=== PATIENT | female | born 1950 | race Caucasian/White ===

== ENCOUNTER 2022-03-27 05:38 | Day surgery (SDC) | payer MEDICARE ==
[2022-03-25 10:55] VITALS: BMI 29.2
[2022-03-27] MEDS ORDERED: EPINEPHrine 1 MG/ML AMP ONE (06:19)
[2022-03-27] MEDS ORDERED: Bupivacaine PF 0.5% 30 ML VIAL ONE (06:20)
[2022-03-27] MEDS ORDERED: Lidocaine 1% MPF 2 ML VIAL ONE (06:23)
[2022-03-27] MEDS ORDERED: Clindamycin/D5W 600 mg/50 ml Premix Bag ONE (06:44)
[2022-03-27] MEDS ORDERED: Ondansetron PF 4 MG/2 ML Vial ONE (06:57)
[2022-03-27] MEDS ORDERED: Fentanyl 100 MCG/2 ML VIAL ONE (06:57)
[2022-03-27] MEDS ORDERED: Dexamethasone 4 mg/ml Vial ONE (06:57)
[2022-03-27] MEDS ORDERED: PROPOFOL 20 ML ONE (06:57)
[2022-03-27] MEDS ORDERED: Lidocaine 1% (PF) 30 ML VIAL ONE (06:58)
== END 2022-03-27 08:55 | disposition home or self-care (01) ==
LOC: CSHSDC 05:38
PROVIDERS: ATTEND Surgery
DX: C50.411 Malignant neoplasm of upper-outer quadrant of right female breast (principal); I10 Essential (primary) hypertension; Z17.0 Estrogen receptor positive status [ER+]; Z88.0 Allergy status to penicillin; Z90.49 Acquired absence of other specified parts of digestive tract; Z98.890 Other specified postprocedural states; Z79.899 Other long term (current) drug therapy
CPT/HCPCS: 36561; 71045; 80053; 82248; 83615; 84100; 84550; C1788; J0171; J1100; J1642; J2001; J2405; J2704; J3010; J3490; S0020

== ENCOUNTER 2022-06-30 06:43 | Day surgery (SDC) | payer MEDICARE ==
[2022-06-26 09:14] VITALS: BMI 25.4
[2022-06-30] MEDS ORDERED: Isosulfan Blue 50 MG/5 ML VIAL ONE (12:46)
[2022-06-30] MEDS ORDERED: Bupivacaine HCl 0.5%/Epinephrine 1:200,000/PF 30 ml Vial ONE (12:46)
[2022-06-30] MEDS ORDERED: Acetaminophen 325 MG TAB PO PRN (14:59)
[2022-06-30] MEDS ORDERED: HYDROcodone/Acetaminophen 5/325 mg Tablet PO PRN ×2 (14:59)
[2022-06-30] MEDS ORDERED: Morphine 2 MG/ML VIAL SLOW IVP PRN (15:10)
== END 2022-06-30 16:24 | disposition home or self-care (01) ==
LOC: CSHNM 06:43
PROVIDERS: ATTEND Surgery
PROC: 0HBT0ZZ Excision of Right Breast, Open Approach (ICD-10-PCS; principal; 2022-06-30)
PROC: 07B50ZZ Excision of Right Axillary Lymphatic, Open Approach (ICD-10-PCS; 2022-06-30)
PROC: C71LYZZ Planar Nuclear Medicine Imaging of Upper Chest Lymphatics using Other Radionuclide (ICD-10-PCS; 2022-06-30)
DX: C50.411 Malignant neoplasm of upper-outer quadrant of right female breast (principal); C77.3 Secondary and unspecified malignant neoplasm of axilla and upper limb lymph nodes; Z17.0 Estrogen receptor positive status [ER+]; F41.9 Anxiety disorder, unspecified; F32.A Depression, unspecified; Z79.899 Other long term (current) drug therapy; Z88.0 Allergy status to penicillin; Z88.1 Allergy status to other antibiotic agents
CPT/HCPCS: 19281; 19301; 38525; 38900; 76098; 78195; A9541; C1713 ×2; Q9968; 88307; 88331; 88342

== ENCOUNTER 2022-12-05 09:12 | Outpatient (CLI) | payer MEDICARE ==
[2022-12-05] MEDS ORDERED: Iopamidol 370 76% 100 ML VIAL ONE (09:29)
== END 2022-12-05 09:13 | disposition home or self-care (01) ==
LOC: CSHCT 09:12
PROVIDERS: ATTEND Internal Medicine Hematology & Oncology
DX: C50.919 Malignant neoplasm of unspecified site of unspecified female breast (principal); R91.8 Other nonspecific abnormal finding of lung field; J84.10 Pulmonary fibrosis, unspecified
CPT/HCPCS: 71260; 82565; Q9967

== ENCOUNTER 2023-01-06 15:09 | Outpatient (CLI) | payer MEDICARE | END 2023-01-06 15:10 | disposition home or self-care (01) | LOC: CSHCP 15:09 | PROVIDERS: ATTEND Internal Medicine | DX: J84.9 Interstitial pulmonary disease, unspecified (principal); R94.2 Abnormal results of pulmonary function studies; I10 Essential (primary) hypertension | CPT/HCPCS: 94010; 94618; 94726; 94729 ==

== ENCOUNTER 2023-05-01 07:33 | Day surgery (SDC) | payer MEDICARE ==
[2023-04-30 10:30] VITALS: BMI 24.7
[2023-05-01] MEDS ORDERED: PROPOFOL 20 ML ONE (10:38)
[2023-05-01] MEDS ORDERED: Lidocaine 1% PF 5 ML VIAL ONE (10:41)
== END 2023-05-01 11:30 | disposition home or self-care (01) ==
LOC: CSHSDC 07:33
PROVIDERS: ATTEND Surgery
PROC: 0DB68ZX Excision of Stomach, Via Natural or Artificial Opening Endoscopic, Diagnostic (ICD-10-PCS; principal; 2023-05-01)
DX: K29.50 Unspecified chronic gastritis without bleeding (principal); K21.9 Gastro-esophageal reflux disease without esophagitis; Z90.89 Acquired absence of other organs; Z90.49 Acquired absence of other specified parts of digestive tract; Z90.710 Acquired absence of both cervix and uterus; Z88.0 Allergy status to penicillin
CPT/HCPCS: 88305; 88342; J2704